=== PATIENT | female | born 1960 | race Hispanic/Latino ===

== ENCOUNTER 2017-12-06 23:45 | Emergency (ER) | payer OTHER ==
[~2017-12-06] VITALS: Ht 160 cm; Wt 65.8 kg
--- NOTE | 2017-12-07 02:22 | Diagnostic Imaging Report ---
EXAMINATION: Head CT without contrast. HISTORY:Headache and vomiting. COMPARISON:None. TECHNIQUE: Multidetector axial images were obtained from the foramen magnum to the vertex without contrast. The images were reconstructed using brain and bone algorithms. Thin section brain images were reformatted into coronal and sagittal planes. Dose modulation, iterative reconstruction, and/or weight based adjustment of the mA/kV was utilized to reduce the radiation dose to as low as reasonably achievable. Intravenous contrast: None IMAGE QUALITY: Suboptimal evaluation of the skull base and posterior fossa structures due to streak artifacts. FINDINGS: Skull/scalp: No lytic or blastic. lesions. No surgical changes. Parenchyma: No abnormal density. No acute hemorrhage, mass or acute major vascular territorial infarct. Arteries: No density suggestive of thrombosis. Dural sinuses: No abnormal density suggestive of thrombosis. Ventricles: No hydrocephalus or displacement. Extra-axial spaces: No abnormal density. Brain volume: Normal for age. Craniocervical junction: No mass, Chiari malformation, or basilar invagination. Sella: No mass. Paranasal/mastoid sinuses: Imaged portions unremarkable. IMPRESSION: No intracranial abnormality. Signed by: Dr. Jessica Finch M.D. on 12/07/2017 2:19 AM
[2017-12-07 02:50] VITALS: BP 178/90
== END 2017-12-07 02:55 | disposition home or self-care (01) ==
LOC: ER 23:45
DX: K08.89 Other specified disorders of teeth and supporting structures (principal); R51 Headache; I10 Essential (primary) hypertension
CPT/HCPCS: 70450; 99282